=== PATIENT | female | born 2000 | race Caucasian/White ===

== ENCOUNTER 2024-12-12 03:58 | Emergency (ER) | payer BC ==
[2024-12-12 05:01] LABS: Anion Gap 14 mmol/L (10-20); BUN (Urea Nitrogen) 8 mg/dL (7.0-18.7); Calc. Creatinine Clearance 0 mL/min (70-130); Calcium 8.7 mg/dL (7.8-10.44); Carbon Dioxide 22 mmol/L (22-29); Chloride 108 mmol/L (98-107); Glucose 88 mg/dL (70-105); Potassium 3.8 mmol/L (3.5-5.1); Sodium 140 mmol/L (136-145)
== END 2024-12-12 06:33 | disposition home or self-care (01) ==
LOC: CSHERS 03:58
DX: R00.2 Palpitations (principal); R07.9 Chest pain, unspecified
CPT/HCPCS: 80048; 85379; 99285